=== PATIENT | male | born 1990 | race Caucasian/White ===

== ENCOUNTER → 2018-01-31 15:26 | Outpatient (CLI) | payer OTHER, SELFPAY ==
[2018-01-31 21:00] LABS: M R Staph aureus DNA By PCR Negative (Negative); Probe Check PASS; Specimen Processing Control PASS; Staph aureus DNA By PCR NEGATIVE (Negative)
== END ==
PROVIDERS: Visit Provider Podiatrist
DX: L60.0 Ingrowing nail (principal)
CPT/HCPCS: 87070; 87077; 87205; 87640